=== PATIENT | female | born 1970 | race Caucasian/White ===

== ENCOUNTER → 2024-12-02 | Outpatient (CLI) | payer OTHER, SELFPAY ==
--- NOTE | 2024-12-02 10:49 | WOUNDNOTE ---
Was called by to see patient for stoma care. pt was found to have colon cancer approx 2 weeks ago. bowel had perforated. 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 surgery was performed at [facility]. pt and opted to defer home health care and has only needed to change the appliance one time. pt and just wanted this nurse to go over an appliance change one more time with them to be sure they are doing things correctly. gently removed the appliance. there was a start of a leak near the umbilical area. stoma is well budded and pink. measures approx 1 1/4. peristomal skin is intact. gently cleansed the skin with warm water. pat dry. applied a 2 piece flat [place] appliance with a paste ring. states he had ordered supplies from [employer]. pt does have insurance through her , but states it is quite costly so opted to order the supplies from [employer]. pt is hoping to only have the stoma for a few months. Pt has a follow up appt in [place] on of this week. Pt and state they feel comfortable with appliance change. all questions answered. aware to call if further needs arise. both very appreciative of visit.
== END | disposition home or self-care (01) ==
LOC: ET 09:45
DX: Z43.2 Encounter for attention to ileostomy (principal)